=== PATIENT | female | born 1975 | race Caucasian/White ===

== ENCOUNTER 2019-03-13 16:09 | Outpatient (REF) | payer OTHER, SELFPAY ==
--- NOTE | 2019-03-13 15:20 | PAPFT_PTH ---
PATIENT: Wandy De Jesus LOC: [facility] U#:[id number] AGE/SX: 43/F ROOM: RE03/13/[address]: Aydee Christopher NP : 1975 BED: DIS: 03/13/2019 SPEC #: [id number] RECD: 03/13/19 18:10 STATUS: CRISTY REOmayra #: [id number] KEVIN: 03/13/19 15:[address]: Aydee Christopher NP DEPT: [facility] Cytology RECD BY: Virgen Florian ENTERED: 03/13/19 18:11 SP TYPE: PAPFT OTHR DR: Shwetha Dempsey Tissues: 1 - CX/ENDOCX FOR PAP SMEARS Procedures: PAP THIN PREP/[facility] Screening HPV DNA PROBE Comments: [id number]
== END 2019-03-13 16:29 ==
LOC: LBN 16:09
PROVIDERS: PCP Internal Medicine; Visit Provider Nurse Practitioner Women's Health
DX: Z12.4 Encounter for screening for malignant neoplasm of cervix (principal)
CPT/HCPCS: 88142; 87624

== ENCOUNTER 2020-05-06 01:27 | Outpatient (CLI) | payer OTHER, SELFPAY ==
--- NOTE | 2020-05-06 08:00 | DI.US_ITS ---
EXAM: US PELVIS TRANSVAGINAL CLINICAL HISTORY: ABNL UTERINE BLEEDING, heavy menstrual bleeding,N93.9. TECHNIQUE: Transabdominal and transvaginal pelvic ultrasound was performed using standard protocol. COMPARISON: No exams were available for comparison FINDINGS: KIDNEYS: Kidneys are symmetric in size. No evidence of renal calculi. No evidence of hydronephrosis. No renal mass or cyst identified. UTERUS: Position: Anteverted. Size: 10.2 long by 4.5 AP by 6.1 transverse cm Endometrium: 0.8 cm. Normal for patient's menstrual status. Myometrium: Unremarkable. Cervix: Multiple cervical nabothian cysts. OVARIES: Right: 3.1 x 1.6 x 1.6 cm Cyst or mass: Several small functional cysts. The largest measures 1.6 cm. Left: 3.1 x 2.2 x 2.3 cm Cyst or mass: Several small functional cysts. The largest measures 2.2 x 1.8 x 2.1 cm. DOPPLER: Color: Symmetric and uniform flow to both ovaries. No hyperemia. CUL-DE-SAC: Free fluid: None. Other: None. IMPRESSION: 1. Normal sonographic appearance of the kidneys. 2. Normal-appearing uterus with endometrial stripe within normal limits. 3. Unremarkable bilateral ovaries. DATA REPOSITORY:
== END 2020-05-06 01:28 | disposition home or self-care (01) ==
LOC: DI 01:27
PROVIDERS: PCP Internal Medicine; Visit Provider Nurse Practitioner Women's Health
DX: N93.9 Abnormal uterine and vaginal bleeding, unspecified (principal); N92.0 Excessive and frequent menstruation with regular cycle
CPT/HCPCS: 76830; 76856

== ENCOUNTER 2020-05-06 03:14 | Outpatient (CLI) | payer OTHER, SELFPAY ==
[2020-05-06 14:58] LABS: TSH (W/Ref FT4) 1.28 uIU/mL (0.36-3.74)
== END 2020-05-06 03:15 | disposition home or self-care (01) ==
LOC: LBO 03:14
PROVIDERS: PCP Internal Medicine; Visit Provider Nurse Practitioner Women's Health
DX: N93.9 Abnormal uterine and vaginal bleeding, unspecified (principal)
CPT/HCPCS: 84443

== ENCOUNTER 2024-06-27 16:06 | Outpatient (CLI) | payer BC, SELFPAY ==
--- NOTE | 2024-06-27 08:15 | DI.RAD_ITS ---
Exam(s) XR HIP LT AP LAT ONLY EXAM: XR HIP LT AP LAT ONLY CLINICAL HISTORY: LEFT HAMSTRING INJURY. TECHNIQUE: 2D digital imaging was performed. Two views. COMPARISON: No exams were available for comparison FINDINGS: BONES: No acute fracture is present. No bony destructive lesion is seen. JOINTS: No dislocation present. The SI joints and pubic symphysis are intact. No significant degenera tive changes. SOFT TISSUE: Normal. IMPRESSION: Unremarkable radiographs of the left hip. DATA REPOSITORY: RADIATION DOSE DELIVERED:
== END 2024-06-27 16:07 | disposition home or self-care (01) ==
LOC: DIORS 16:06
PROVIDERS: PCP Internal Medicine; Visit Provider Student in an Organized Health Care Education/Training Program
DX: S76.302A Unspecified injury of muscle, fascia and tendon of the posterior muscle group at thigh level, left thigh, initial encounter (principal); X58.XXXA Exposure to other specified factors, initial encounter
CPT/HCPCS: 73502

== ENCOUNTER 2024-07-19 00:39 | Outpatient (CLI) | payer BC, SELFPAY ==
--- NOTE | 2024-07-19 06:30 | DI.MRI_ITS ---
Exam(s) MR LOWER JOINT LT WO EXAM: MR LOWER JOINT LT WO CLINICAL HISTORY: HAMSTRING INJURY,lt proximal hamstring tendon rupture,s76.312a TECHNIQUE: Multiplanar multisequence MRI of the hip was performed. COMPARISON: No exams were available for comparison FINDINGS: MARROW:There is no evidence of hip fracture, bone contusion, nor avascular necrosis. There are no si gnificant osseous lesions.There is no significant osseous excrescence at the femoral head-neck juncti on to suggest the presence of cam-type WILFRED. No abnormal signal at the level of the lateral trochante r. EFFUSION: There is no evidence of hip joint effusion. BURSAE: There is no evidence of trochanteric bursitis. There is no evidence of iliopsoas bursitis. HIP JOINT SPACE: No obvious chondral defects.There is no hypertrophy of the ligamentum teres nor sign al abnormality at the fovea centralis.No loose intra-articular bodies evident. LABRUM: There is no evidence of obvious labral tear nor evidence of paralabral cyst. TENDONS: No evidence of tendinitis nor tendon tears. ISCHIAL TUBEROSITY/HAMSTRING: There is mild increased signal within the common hamstrings attachment group of the left hip and there is also a thin area abnormal intraosseous marrow signal in the ischia l tuberosity at this level, this this linear signal abnormality measuring 2.6 cm in length and involv ing both the medial and lateral facet areas of the left ischial tuberosity.. There is a thin corresp onding hypointense line on the T1 images, indicating nondisplaced/non avulsed trabecular injury at th is level. However, there is no evidence of high-grade hamstring muscle group tear nor abnormal fluid signal in the adjacent soft tissues. OTHER: There is no abnormal intramuscular signal within the quadratus femoris to suggest the presence of impingement syndrome at this level. IMPRESSION: 1. At the level of the left ischial tuberosity there is linear sub cortical marrow signal abnormality consistent with trabecular injury/nondisplaced stress fracture at this level immediately subjacent t o the conjoined hamstrings tendon attachment site. 2. There is mild intrasubstance signal abnormality within the ipsilateral conjoined hamstrings tendon attachment/sprain signal but there is no evidence of high-grade tear of the hamstrings tendon at thi s level. 3. Left hip joint appears unremarkable. DATA REPOSITORY:
== END 2024-07-19 00:59 ==
LOC: DI 00:40
PROVIDERS: PCP Internal Medicine; Visit Provider Student in an Organized Health Care Education/Training Program
DX: S76.312A Strain of muscle, fascia and tendon of the posterior muscle group at thigh level, left thigh, initial encounter (principal); X58.XXXA Exposure to other specified factors, initial encounter
CPT/HCPCS: 73721